=== PATIENT | male | born 1985 | race Caucasian/White ===

== ENCOUNTER → 2016-08-03 | Outpatient (CLI) | payer OTHER ==
[~2016-08-03] MED LIST: ALBU1AER9 INH; AMIT25TA9 PO; ATV/2 PO; GADAVIST IV PRN; HYDR-4079 PO; ONDA8TAB6 PO; OPTIRAY 320 IV PRN; PREG100C PO; TEMO1CAP PO; [UNRECOGNIZED DRUG - CODE]
--- NOTE | 2016-08-03 12:14 | DIAGNOSTIC IMAGING REPORT ---
CT OF THE CHEST WITH IV CONTRAST CLINICAL HISTORY: [facility] COMPARISON STUDY: Chest CT April 12, 2016. TECHNIQUE: Following IV administration of 94 mL of Optiray-320, helical axial images of the chest were obtained. Images were viewed in the axial, sagittal and coronal planes. IV contrast was administered without complication. CT DOSE: 246.42 mGy.cm FINDINGS: No enlarged axillary, mediastinal or hilar lymph nodes are present. A right internal jugular [id number] is in place. The size of the heart is normal. There is no pericardial effusion. A 4 mm subpleural nodule within the right lower lobe shown on image 213 of 346 is new since prior exam. Two 3 mm right upper lobe nodules shown on images 118 and 168 are unchanged since earlier exams. These are benign. Lingular opacity suggest atelectasis. A 3 mm subpleural nodule within the left lower lobe shown on image 267 is likely new although evaluation is difficult given its small size. There is a subtle area of sclerosis within the anterior right seventh rib shown best on image 243. This is more conspicuous than on prior exams. The upper abdomen is unremarkable. IMPRESSION: 1. Several tiny subpleural nodules measuring up to 4 mm. The right lower lobe nodule is new since prior CT of April 12, 2016. These nodules are indeterminate. A short-term follow-up CT in 3-6 months is recommended. 2. Subtle focus of sclerosis within the anterior right seventh rib which is more conspicuous than on prior exams. This is not highly suspicious but is indeterminate and should be assessed on subsequent studies. Electronically signed by: Francisco Redding M.D. 08/03/2016 12:13 PM Dictated Date/Time: 08/03/2016 10:19 AM
--- NOTE | 2016-08-03 15:40 | DIAGNOSTIC IMAGING REPORT ---
MRI OF THE PELVIS WITH AND WITHOUT CONTRAST CLINICAL HISTORY: [facility]. COMPARISON STUDY: MRI of the pelvis April 12, 2016 and December 31, 2015. TECHNIQUE: Utilizing a 1.5 Tiffany magnet and dedicated coil, multiplanar, multiecho imaging of the pelvis was performed pre and postcontrast ministration. Injection of 5.5 cc of Gadavist IV was uneventful. FINDINGS: Postsurgical findings suggestive of a partial right hemipelvectomy are unchanged since prior exam of April 12, 2016. Increased signal within the right adductor musculature is unchanged since prior exam. No mass adjacent to the right hemipelvis is identified on this examination. An expansile enhancing mass centered on the left superior pubic ramus has significantly increased in size since exam of April 12, 2016, measuring approximately 6.3 x 6.1 x 5.2 cm. However, measurements are difficult to obtain given the multiple components to this mass which extend the adjacent soft tissues. Extension into the adjacent musculature is noted. An area of increased T2 signal within this mass may reflect an area of necrosis. The lesion extends to the medial wall the left acetabulum. A 1.1 cm enhancing lesion within left iliac bone is unchanged. An enhancing focus within the sacrum is unchanged. Marrow signal heterogeneity within the pelvis and lumbar spine is likely related to prior radiation therapy. A few prominent left angle lymph nodes are unchanged. No pathologically enlarged lymph nodes are present. A right hydrocele is again noted. IMPRESSION: 1. Significant interval enlargement of the expansile mass centered within the left superior pubic ramus with extension into the adjacent soft tissues since MRI of April 12, 2016. The findings suggest significant progression of metastatic disease. 2. Status post right hemipelvectomy. Stable postoperative appearance. Electronically signed by: Francisco Redding M.D. 08/03/2016 3:38 PM Dictated Date/Time: 08/03/2016 11:47 AM
== END | disposition home or self-care (01) ==
LOC: C.CTS 10:01
PROVIDERS: ATTEND Hospitalist
DX: C41.9 Malignant neoplasm of bone and articular cartilage, unspecified (principal); R91.1 Solitary pulmonary nodule